=== PATIENT | male | born 1960 | race Two or more races ===

== ENCOUNTER 2018-01-15 11:15 | Inpatient (IN) | payer OTHER ==
[~2018-01-15] VITALS: Ht 185.4 cm; Wt 105.2 kg
[~2018-01-15 11:15] MED LIST: ceFAZolin sod 2 GM in D5W 110 ML IVPB ONE
[2018-03-12] VITALS (16 sets, daily range): BP systolic 116–136; BP diastolic 59–84
[2018-03-12] MEDS ORDERED: Zemuron 50mg/5ml Inj IV ONE (06:46)
[2018-03-12] MEDS ORDERED: MELOXICAM7.5 MG PO (06:52)
[2018-03-12] MEDS ORDERED: PROVENTIL HFA6.7 G1 IH (06:52)
[2018-03-12] MEDS ORDERED: METFORMIN HCL1000 M1 ORAL (06:52)
[2018-03-12] MEDS ORDERED: PRAVASTATIN SOD40 M1 ORAL (06:52)
[2018-03-12] MEDS ORDERED: ceFAZolin sod 2 GM in D5W 110 ML IVPB ONE (07:00)
[2018-03-12] MEDS ORDERED: LR 1000ml 1,000 ML IVLG SCH (07:04)
[2018-03-12] MEDS ORDERED: Sodium Chloride 10ml vial INJ ONE (07:06)
[2018-03-12] MEDS ORDERED: Lidocaine 1% Plain 30 ml INJ ONE ×2 (07:06→09:18)
[2018-03-12] MEDS ORDERED: Lidocaine 1% MPF 10mg/ml 5ml ONE (07:06)
--- NOTE | 2018-03-12 07:06 | Anethesia Preoperative Eval ---
Anesthesia Pre-op PMH/ROS General Date of Evaluation: Mar 12, 2018 Time of Evaluation: 07:31 Anesthesiologist: Jame ASA Score: ASA 3 Mallampati Score Class I : Soft palate, uvula, fauces, pillars visible Class II: Soft palate, uvula, fauces visible Class III: Soft palate, base of uvula visible Class IV: Only hard plate visible Mallampati Classification: Class II Surgeon: Hayden Diagnosis: Neck Pain Surgical Procedure: ACDF C5-6, C6-7 Anesthesia History: none Family History: no anesthesia problems Allergies: Coded Allergies: No Known Allergies (Unverified , 03/12/18) Medications: see eMAR Patient NPO?: Yes NPO Date: Mar 11, 2018 NPO Time: 1999 Past Medical History Cardiovascular: Reports: HTN, other - HL Endocrine: Reports: DM - FBS 137 Other: obesity - BMI 31 PSxH Narrative: R Wrist, Knee, Shoulder Sx, Sinus Sx Anesthesia Pre-op Phys. Exam Physician Exam Last Vital Signs Date Time Temp Pulse Resp B/P (MAP) Pulse Ox O2 Delivery O2 Flow Rate FiO2 03/12/18 06:32 Room Air 03/12/18 06:30 97.4 74 18 136/83 (100) 98 Constitutional: NAD Neurologic: CN 2-12 intact Cardiovascular: RRR Respiratory: CTA Gastrointestinal: S/NT/ND Airway Exam Mallampati Score: Class II MO: full ROM: limited Teeth: missing - Implants Anesthesia Pre-op A/P Risk Assessment & Plan Assessment: ASA 3 Plan: GA, SED, GlideScope Go Status Change Before Surgery: No Pre-Antibiotics Dru Grams Ancef IV Given Within 1 Hr of Incision: Yes Time Given: 07:46 Pablo Kilgore MD Mar 12, 2018 07:05
[2018-03-12] MEDS ORDERED: Bupivacaine w/Epi 0.5% 30ml Vial INJ ONE (07:12)
[2018-03-12] MEDS ORDERED: Vancomycin 1gm inj IVPB ONE (07:12)
[2018-03-12] MEDS ORDERED: Thrombin 5000 units TOPIC ONE ×2 (07:12→07:13)
[2018-03-12] MEDS ORDERED: Bacitracin 50000 Units Vial ONE (07:12)
[2018-03-12] MEDS ORDERED: oxyCODONE HCL/Acetaminophen 5/325mg ORAL PRN (07:15)
[2018-03-12] MEDS ORDERED: LORazepam Inj 2mg/ml 1ml IV PRN (07:15)
[2018-03-12] MEDS ORDERED: Acetaminophen (Non formulary) 100 ML IV ONE (07:15)
[2018-03-12] MEDS ORDERED: Meperidine 50mg/ml Inj(FOR RIGORS ONLY) IVP PRN (07:15)
[2018-03-12] MEDS ORDERED: Hydromorphone 0.5mg/0.5ml inj IVP PRN (07:15)
[2018-03-12] MEDS ORDERED: Norco 5mg/325mg tab ORAL PRN ×2 (07:15→08:00)
[2018-03-12] MEDS ORDERED: Ketorolac 30mg Inj IV PRN ×2 (07:15)
[2018-03-12] MEDS ORDERED: HYDROcodone/Acetamin 7.5/325 tab ORAL PRN ×2 (07:15→08:00)
[2018-03-12] MEDS ORDERED: Midazolam 2mg/2ml Inj IVP PRN (07:15)
[2018-03-12] MEDS ORDERED: Atropine Sulfate 0.4mg/ml inj IVP PRN (07:15)
[2018-03-12] MEDS ORDERED: DiphenhydrAMINE 50mg/ml Inj IVP PRN (07:15)
[2018-03-12] MEDS ORDERED: Metoclopramide 10mg/2ml Inj IVP PRN (07:15)
[2018-03-12] MEDS ORDERED: fentaNYL 100 mcg/2 mL IV PRN (07:15)
--- NOTE | 2018-03-12 07:26 | Pre-Procedure Note/Attestation ---
Pre-Procedure Note/Attestation Complete Prior to Procedure Procedure Narrative: ACDF C56 and C67 with iliac bone marrow aspiration Indications for Procedure Pre-Operative Diagnosis: cervical radiculopathy Attestation I attest that I discussed the nature of the procedure; its benefits; risks and complications; and alternatives (and the risks and benefits of such alternatives ), prior to the procedure, with the patient (or the patient's legal paper sales representative). I attest that, if there was a reasonable possibility of needing a blood transfusion, the patient (or the patient's legal paper sales representative) was given the [facility] standardized written summary, pursuant to the [place] Blood Safety Act ([place] Health and Safety Code # 1645, as amended). I attest that I re-evaluated the patient just prior to the surgery and that there has been no change in the patient's H&P, except as documented below: Tolu Blake MD Mar 12, 2018 07:26
[2018-03-12] MEDS ORDERED: NS Irrig 1000ml ONE (07:30)
[2018-03-12] MEDS ORDERED: Labetalol 5mg/ml 20ml vial IV ONE (07:30)
[2018-03-12] MEDS ORDERED: LR 1000ml ONE (07:30)
[2018-03-12] MEDS ORDERED: Sterile Water Irrig 1000ml IRRIG ONE (07:30)
[2018-03-12] MEDS ORDERED: Propofol 1,000mg/ 100ml btl IV ONE (07:30)
[2018-03-12] MEDS ORDERED: Heparin 1000 units/ml 1ml Vial ONE (07:56)
[2018-03-12] MEDS ORDERED: HYDROmorphone 1mg/ml Carpuject IVP PRN (08:00)
[2018-03-12] MEDS ORDERED: HYDROmorphone 1mg/ml Carpuject SUBQ PRN (08:00)
[2018-03-12] MEDS ORDERED: Naloxone 0.4mg/ml Inj IVP PRN (08:00)
[2018-03-12] MEDS ORDERED: fentaNYL 100 mcg/2 mL IV ONE ×2 (08:10→10:07)
--- NOTE | 2018-03-12 08:35 | Immediate Post-Op Evaluation ---
Immediate Post-Op Evalulation Immediate Post-Op Evalulation Procedure: ACDF C5-6, C6-7 Date of Evaluation: Mar 12, 2018 Time of Evaluation: 11:44 IV Fluids: 1000 LR Blood Products: 0 Estimated Blood Loss: 75 Urinary Output: 200 Blood Pressure Systolic: 135 Blood Pressure Diastolic: 83 Pulse Rate: 72 Respiratory Rate: 16 O2 Sat by Pulse Oximetry: 100 Temperature (Fahrenheit): 97.7 Pain Score (1-10): 2 Nausea: No Vomiting: No Complications 0 Patient Status: awake, reacts, patent, extubated, none Hydration Status: adequate Dru Grams Ancef IV Given Within 1 Hr of Incision: Yes Time Given: 07:46 Pablo Kilgore MD Mar 12, 2018 08:35
[2018-03-12] MEDS ORDERED: Docusate 100mg cap ORAL SCH (09:00)
--- NOTE | 2018-03-12 11:18 | Brief Operative Note ---
Immediate Post Operative Note Operative Note Pre-op Diagnosis: cervical radiculopathy Procedure: ACDF C56 AND C67 WITH ILIAC BMAC Post-op Diagnosis: same as pre-op Findings: consistent w/pre-op dx studies Surgeon: LILIYA Biostatistics Professor: RENETTA Anesthesiologist: HANNAH Anesthesia: general Specimen: yes Complications: none Condition: stable Fluids: 1L Estimated Blood Loss: minimal - 75CC Drains: none Implant(s) used?: Yes Tolu Blake MD Mar 12, 2018 11:18
--- NOTE | 2018-03-12 13:20 | NUR ---
NURSE NOTES: Patient arrived to unit at 1310 via bed accompanied by RN. Received report from Destiny RN. Belongings checked at bedside and verified, all belongings sent home with patient's friend. Patient is asleep but arousable to voice, no s/s acute distress noted. On 3L NC. IV patent and running KVO IVF. SCD's in place. VS assessed and stable, neuro check assessed intact. Dressing assessed c/d/i, ice pack in place. Patient reminded to not turn head from side to side, to remain in neutral position. Side rails upx2, bed low and locked, call light in reach. Will continue to monitor.
[2018-03-12] MEDS: D5 1/2NS 1,000 ML IV SCH ×2 (14:13→17:51)
--- NOTE | 2018-03-12 15:26 | Diagnostic Imaging Report ---
INDICATION: Pain left upper extremity greater than right upper extremity, intraoperative TECHNIQUE: Intraoperative imaging Fluoroscopy time: 21.1 seconds Total dose: 0.75362 mGym2 Total number of images: 5 COMPARISON: None FINDINGS: 6 intraoperative images demonstrate a surgical needle anterior to the C5 vertebral body, subsequent surgical tool at the anterior aspect of the C6-7 disc. Subsequent images document anterior fusion and placement of disc spacers at C5-6 and C6-7. IMPRESSION: Intraoperative imaging, as described
--- NOTE | 2018-03-12 16:07 | NUR ---
CASE MANAGEMENT:REVIEW 57 YR OLD MALE HERE FOR ELECTIVE SURGERY SI: CERVICAL RADICULOPATHY 97.4 74 18 136/83 98% ON RA IS: TO SURGERY FOR: ACDF C56 AND C67 W/ILIAC BMAC IV ANCEF Q8HR IVF@100/HR NORCO PO Q3HRS PRN IV DILAUDID Q2HRS PRN : TO MED/SURG 3 EAST POST OP Addendum: 03/12/18 at 1614 by SHARMAINE ANGLIN LVN LVN INTERQUAL CRITERIA MET
[2018-03-12] MEDS: ceFAZolin sod 1 GM in D5W 55 ML IV SCH (16:28)
[2018-03-12] MEDS: HYDROcodone/Acetamin 7.5/325 tab ORAL PRN ×2 (16:40→21:40)
--- NOTE | 2018-03-12 18:24 | NUR ---
NURSE NOTES: Giles catheter removed per order. Patient given urinal and instructed to inform RN when voided. Will continue to monitor.
[2018-03-12] MEDS: Docusate 100mg cap ORAL SCH (18:29)
--- NOTE | 2018-03-12 19:55 | NUR ---
NURSE NOTES: Endorsed to nightshift nurse that patient has not yet voided after tobin catheter removal.
--- NOTE | 2018-03-12 19:55 | NUR ---
HAND-OFF: Report given to Heidi HENLEY. Patient stable.
--- NOTE | 2018-03-12 19:55 | NUR ---
NURSE NOTES:Patient received from Yessica Cooney patient IN BED A/A/AOX4 .Patient Denies any pain at at this time . no sob/no n/v noted .patient right hand G#18 D51/2 NS @ 100 CC/HR infusing well . anterior neck and right hip dressing C/D/I . Patient instructed to uses IS at bed bedside . Patient tolerated well call light within reach . bed in low position at all times. will continue to monitor patient. Addendum: 03/13/18 at 0255 by GORDON ESCALONA LVN Patient on O2 2L via N/C ON AND SCDS Bilateral lower extremities in placed .
[2018-03-13] VITALS: BP 124/74
[2018-03-13] MEDS: D5 1/2NS 1,000 ML IV SCH ×2 (00:08→12:36)
[2018-03-13] MEDS: ceFAZolin sod 1 GM in D5W 55 ML IV SCH ×2 (00:17→09:31)
[2018-03-13] MEDS: HYDROcodone/Acetamin 7.5/325 tab ORAL PRN ×3 (03:55→17:29)
[2018-03-13 04:00] VITALS: BP 133/85
--- NOTE | 2018-03-13 07:45 | NUR ---
HAND-OFF: Report given to Meaghan Cooney Patient in stable condition.
[2018-03-13 08:00] VITALS: BP 124/75
--- NOTE | 2018-03-13 08:29 | NUR ---
Pt in bed a/o x 4 having breakfast in no acute distress running fluids as ordered. Dressing to anterior neck D/C/I. Pt left in bed in low position, call light within reach, skid socks on.
--- NOTE | 2018-03-13 09:22 | NUR ---
Rehab/P.T Note: P.T evaluation completed and treatment initiated spinal protocol. Please refer to P.T evaluation for current functional status. Skilled P.T service warranted to ensure safety and compliance with spinal precautions in performing ADL/functional activities. Thank you this referral.
[2018-03-13] MEDS: Docusate 100mg cap ORAL SCH ×2 (09:31→17:29)
[2018-03-13 12:47] VITALS: BP 126/82
--- NOTE | 2018-03-13 14:59 | NUR ---
CASE MANAGEMENT:REVIEW 03/13/18 SI: CERVICAL RADICULOPATHY. POD #1 98.6 76 20 126/82 99% ON RA IS: COLACE PO BID NORCO PO Q3HRS PRN : MED/SURG STATUS 3 EAST
--- NOTE | 2018-03-13 15:18 | 48 Hour Post Anesthesia Eval ---
Post Anesthesia Evaluation Procedure: ACDF C5-6, C6-7 Date of Evaluation: Mar 13, 2018 Time of Evaluation: 15:17 Blood Pressure Systolic: 124 0: 74 Pulse Rate: 68 Respiratory Rate: 22 Temperature (Fahrenheit): 97.6 O2 Sat by Pulse Oximetry: 98 Airway: patent Nausea: No Vomiting: No Pain Intensity: 2 Hydration Status: adequate Cardiopulmonary Status: stable Mental Status/LOC: patient returned to baseline Follow-up Care/Observations: n/a Post-Anesthesia Complications: none Follow-up care needed: N/A Aric Mullins MD Mar 13, 2018 15:18
[2018-03-13 16:00] VITALS: BP 121/68
--- NOTE | 2018-03-13 16:07 | Internal Med Progress Note ---
Subjective Physician Name ChrisPrince Attending Physician Tolu Blake MD Current Medications Medications (Trade) Dose Ordered Sig/Joshua Route PRN Reason Start Time Stop Time Status Last Admin Dose Admin Acetaminophen/ Hydrocodone Bitart ([place] 5/325) 1 tab Q3H PRN ORAL pain score 1-3 03/12/18 08:00 03/19/18 07:59 Acetaminophen/ Hydrocodone Bitart ([place] 7.5/325) 1 tab Q3H PRN ORAL pain score 4-6 03/12/18 08:00 03/19/18 07:59 Acetaminophen/ Hydrocodone Bitart ([place] 7.5/325) 2 tab Q3H PRN ORAL pain scale 7-10 03/12/18 08:00 03/19/18 07:59 03/13/18 09:31 Dextrose/Sodium Chloride 1,000 ml @ 100 mls/hr Q10H IV 03/12/18 07:51 04/11/18 07:50 03/13/18 12:36 Docusate Sodium (Colace) 100 mg TWICE A DAY ORAL 03/12/18 18:00 04/11/18 17:59 03/13/18 09:31 Hydromorphone HCl (Dilaudid) 1 mg Q2H PRN IVP Breakthrough Pain 03/12/18 08:00 03/19/18 07:59 Hydromorphone HCl (Dilaudid) 1 mg Q4H PRN SUBQ Mild Pain (Pain Scale 1-3) 03/12/18 08:00 03/19/18 07:59 Hydromorphone HCl (Dilaudid) 2 mg Q3H PRN SUBQ Severe Pain (Pain Scale 7-10) 03/12/18 08:00 03/19/18 07:59 03/13/18 14:59 Hydromorphone HCl (Dilaudid) 2 mg Q4H PRN SUBQ Moderate Pain (Pain Scale 4-6) 03/12/18 08:00 03/19/18 07:59 Naloxone HCl (Narcan) 0.1 mg PRN PRN IVP RR<12/min, pt unarousable 03/12/18 08:00 04/11/18 07:59 Ondansetron HCl (Zofran) 4 mg Q6H PRN IVP Nausea & Vomiting 03/12/18 08:00 04/11/18 07:59 Allergies: Coded Allergies: No Known Allergies (Unverified , 03/12/18) Subjective awake, alert, responsive Objective Last Vital Signs Date Time Temp Pulse Resp B/P (MAP) Pulse Ox O2 Delivery O2 Flow Rate FiO2 03/13/18 15:18 68 22 98 03/13/18 12:47 98.6 126/82 (97) 03/13/18 09:00 Room Air 03/12/18 13:30 2.0 Intake and Output 03/12/18 03/13/18 18:59 06:59 Intake Total 2110 ml 1775 ml Output Total 1125 ml 1500 ml Balance 985 ml 275 ml Intake Oral 700 ml 720 ml IV Total 1410 ml 1055 ml Output Urine Total 1050 ml 1500 ml Estimated Blood Loss 75 ml # Voids 3 Objective General: No acute distress, awake and alert HEENT: NCAT, sclera anicteric, PERRL, EOMI. Neck: Supple, no significant jugular venous distention, Surgical incision intact dressing. Lungs: Good inspiratory effort, clear to auscultation bilaterally, no Wheeze or Rales. Heart: Regular rate and rhythm, normal S1/S2, no murmurs Abdomen: soft, nontender, nondistended. Normoactive bowel sounds. / Rectal: Refused and deferred. Extremities: No Cyanosis , clubbing or edema. Neuro: A&O x 3, Able to move all extremities Skin: warm, no rashes or lesions Psych: Normal mood and affect Assessment/Plan Assessment/Plan cervical radiculopathy s/p ACDF C56 AND C67 WITH ILIAC BMAC DM 2 Asthma Plan: DC home today once okay by surgery Prince Perez MD Mar 13, 2018 16:07
[2018-03-13] MEDS ORDERED: PERCOCET 5-3251 EACH ORAL (16:56)
--- NOTE | 2018-03-13 19:05 | NUR ---
NURSE NOTES: Pt discharged in stable condition a/o x 4. Delivered packet to pt with discharge instructions. Percocet Rx hand delivered. Pt left with [place] collar on and all belongings. wheelchaired to car by Chun STEWART.
[2018-03-13] MEDS ORDERED: D5 1/2NS 1000ml IV ONE (19:29)
[2018-03-13] MEDS ORDERED: Tubing IV Secondary IV ONE (19:29)
--- NOTE | 2018-03-13 20:01 | Operative Note - Dictated ---
DATE OF OPERATION: 03/12/2018 PREOPERATIVE DIAGNOSES: C5-C6 and C6-C7 spondylosis, stenosis, disc protrusion, and upper extremity radiculopathy. POSTOPERATIVE DIAGNOSES: C5-C6 and C6-C7 spondylosis, stenosis, disc protrusion, and upper extremity radiculopathy. PROCEDURES: 1. Interbody arthrodesis with decompression at C5-C6 and C6-C7. 2. Anterior cervical instrumentation at C5 through C7. 3. Application of biomechanical device at C5-C6 and C6-C7 with local autograft, allograft, and bone marrow aspirate concentrate. 4. Aspiration of right iliac crest bone marrow. SURGEON: Tolu Blake M.D. HOME OFFICE CLAIMS EXAMINER: Douglas Correia M.D. ANESTHESIA: General endotracheal anesthesia. SPECIMEN: Disk at C5-C6 and C6-C7. ANESTHESIOLOGIST: Pablo Kilgore M.D. EBL: Less than 75 mL. IV ANTIBIOTICS: 2 g of Ancef. COMPLICATIONS: None. BACKGROUND AND INDICATIONS: This is a pleasant male, who failed nonoperative treatment and option for above treatment was given. Risks, alternatives, and benefits were discussed with the patient at length. Risks include, but are not limited to, anesthesia complications including , medical complications including liver, kidney, and cardiopulmonary deficits, bleeding, infection, dysphonia, dysphagia, hematoma of the neck, nerve root injury, paralysis, spinal cord injury, CSF leak, dural tear, fracture of the hardware, loosening of the hardware, need for revision, decompression and fusion, swallowing difficulties, esophageal injury, tracheal injury, recurrent laryngeal nerve injury as well as other complications including compartment syndrome. The patient understood and wished to proceed. All the patient's questions were answered. Written and verbal consent was given. No guarantees were given. OPERATIVE FINDINGS: Herniated nucleus pulposus at C5-C6 and C6-C7 with spinal cord compression, neural foraminal stenosis, exiting nerve root impingement at C5-C6 and C6-C7, and disc height collapse at C5-C6. DESCRIPTION OF OPERATION: The patient was brought into the operating room supine on a stretcher. Appropriate IV lines were placed by the anesthesiologist and 2 g of Ancef was administered. The patient was induced and intubated without complication. The patient was positioned onto the operating room table. The neck was placed in slight extension. The arms were tucked by the side. All bony prominences were well padded as well as lower extremities. SSEP neurophysiological leads were placed and EMG monitoring was done. Both remained stable throughout the case. Preoperative fluoroscopy revealed the planned incision to be over C5-C6 and C6-C7 interspaces. Fluoroscopy revealed the neck to be in adequate alignment. The neck was prepped and draped in the usual fashion. The right iliac crest was also prepped and draped in the usual sterile fashion. At this point, attention was first diverted to the right iliac crest. A Jamshidi needle was placed into the right iliac crest and 30 mL of bone marrow aspirate was aspirated in 3 different locations and passed off sterilely for concentration. At this point, attention was diverted to the neck. An incision was carried out with a scalpel on the anterior right side of the neck in the crease of the neck. Hemostasis was achieved with a bipolar cautery. The platysma was incised in line with the skin incision. Blunt dissection was carried out in the interval between the strap muscles and the sternocleidomastoid. Superficial cervical fascia was dissected caudally as well as cephalad. Carotid pulse was palpated and was found to be well lateral to the field of dissection. Deep cervical fascia was encountered. Once the deep cervical fascia was encountered, blunt dissection was carried out with Kitt[place] as well as the finger dissection to find the prevertebral space. The longus colli was found on both sides of the spine and was subperiosteally dissected. At this point, retractors were set into place and a spinal needle was placed at the disk level. Lateral fluoroscopy was taken and the C5-C6 and C6-C7 levels were positively identified. Data Entry Supervisor retractors were set into place and initial attention was diverted to the C5-C6 level. With the use of #1, #2, and #3 Kerrison punches, straight curved curette, as well as a high-speed high, a radical diskectomy was accomplished. An uncovertebrectomy was also done to the level of the posterior longitudinal ligament. There was extensive amount of disk material centrally in the lateral recess and intraforaminally, which was removed with #1 and #2 Kerrison punches. A #1 and #2 Microsect curettes were used to remove the PLL and expose the dura and give a complete decompression of the spinal cord, the lateral recess, and neural foramina. Attention was diverted to the neural foramina until a complete decompression of the exiting C6 nerves bilaterally was accomplished. At this point, Valsalva at 40 mmHg was done and there was no CSF leak and a complete decompression was achieved. Now, retractors were moved to the C6-C7 level and with the same instruments, a radical diskectomy and uncovertebrectomy was accomplished at C6-C7 to the level of the posterior longitudinal ligament. There was a disk herniation, which was abutting the spinal cord and compressing the spinal cord as well in the lateral recess and foraminal region. With #1 and #2 Kerrison punches, all disk material was removed as well as foraminal stenosis, which was removed until there was a complete decompression of the exiting C7 nerve and the neural foramina bilaterally were found to be patent. A #1 and #2 Microsect curettes were used to carefully peel the posterior longitudinal ligament off of the dura and a complete decompression of the spinal cord and exiting nerve root was accomplished. Valsalva at 40 mmHg was done and there was no CSF leak. At this point, the wound was copiously irrigated with triple antibiotic solution and attention was diverted to placing the trial for the biomechanical devices from the CoreLink 3D system. An 8 mm in height by 16.5 mm in width by 14 mm in depth with 7-degree lordosis CoreLink 3D titanium biomechanical device was chosen for the C6-C7 level was packed with local autograft, which was harvested from the vertebral bodies, Ilan allograft, and bone marrow aspirate concentrate and this biomechanical device was tamped into place at C6-C7 with excellent apposition against the endplate and excellent recreation of lordosis. A 7 mm in height CoreLink 3D titanium biomechanical device was chosen for the C5-C6 level was also packed with bone marrow aspirate concentrate, Ilan allograft, and local autograft and tamped into place at C5-C6 with excellent recreation of lordosis. A 32 mL [place] anterior cervical plate was chosen and was fixed to the anterior surface of the vertebral bodies with 16 mm variable self-drilling screws. Each screw had excellent purchase in the vertebral body and found below the locking mechanism of the [place] plate appropriately. There was excellent lordosis of the [place] plate and the plate sat snugly against the vertebral bodies. At this point, final AP and lateral fluoroscopy revealed all instrumentation to be in excellent position. Hemostasis was achieved with bipolar cautery, FloSeal, Gelfoam, and thrombin. The wound was copiously irrigated. There was no bleeding and therefore, a decision was made not to place a drain. The platysma was closed with 3-0 Vicryl suture. The subcuticular layer was closed with 3-0 Monocryl suture. The skin was closed with Dermabond. Sterile dressing tape was placed on the neck as well as the right hip. The patient was extubated. A C-collar was placed. He was taken to the recovery room in stable condition and was found to be neurovascularly intact. There were no complications during the case. Tolu Blake M.D. DR: KISHOR JOB#: [id number] CC:
--- NOTE | 2018-03-15 12:05 | Discharge Summary ---
Discharge Summary Hospital Course Date of Admission Mar 12, 2018 at 05:52 Date of Discharge Mar 13, 2018 at 19:30 Admitting Diagnosis cervical radiculopathy Reason for Hospitalization: elective surgery HPI Marco Antonio Manrique is a 57 year old male who was admitted on Mar 12, 2018 at 05: 52 for Cervical Radiculopathy Consultations dr Perez - IM Procedures s/p 03/12/[address] Blake 1. Interbody arthrodesis with decompression at C5-C6 and C6-C7. 2. Anterior cervical instrumentation at C5 through C7. 3. Application of biomechanical device at C5-C6 and C6-C7 with local autograft, allograft, and bone marrow aspirate concentrate. 4. Aspiration of right iliac crest bone marrow. Hospital Course status post surgery course of recovery uneventful initially IV fluids s/p perioperative antibiotics neurovascular status closely monitored, stable incision clean, dry ,and intact pain management addressed ; pain controlled hemodynamically stable ambulated with PT fall precautions maintained; safe for ambulation tolerated liquid diet , IV fluids discontinued throat lozenges as needed for comfort provided continue with soft diet for few days at home and advance to regular as tolerated GI prophylaxis provided antiemetics were on board as needed blood sugar was closely monitored , stable pulse oximetry stable on room air, no evidence of respiratory distress or asthma exacerbation voided freely bowel regimen instituted patient was stable for discharge discharge instructions provided [place] collar on, instructed on use and compliance follow up with surgeon as outpatient as advised by surgeon FINAL DIAGNOSES Cervical radiculopathy s/p ACDF C5-6 and C6-7 with iliac BMAC ( bone amrrow aspirtaion concentrate) Diabetes mellitus Asthma Discharge Medications Continued Medications: Albuterol Sulfate (Proventil Hfa) 6.7 Gm Hfa.aer.ad 6.7 GM IH NEEDED (This prescription has been renewed) Meloxicam* (Meloxicam*) 7.5 Mg Tablet 7.5 MG PO BID PRN for For Pain, TAB (This prescription has been renewed) Metformin Hcl* (Metformin Hcl*) 1,000 Mg Tablet 1000 MG ORAL BID, TAB (This prescription has been renewed) Oxycodone/Acetaminophen 5-325* (Percocet 5-325 Mg Tablet*) 1 Each Tablet 1 TAB ORAL Q4H PRN for For Pain, #40 TAB (This prescription has been renewed) Pravastatin Sod (Pravastatin Sod) 40 Mg Tablet 40 MG ORAL BEDTIME, TAB (This prescription has been renewed) Discharge Condition Upon Discharge: stable Discharge Disposition Patient was discharged to Home (01) Discharge Instructions Discharge Instructions Special Instructions I have been assigned to complete a D/C Summary on this account. I was not involved in the patient management I have been assigned to complete a D/C Summary on this account. I was not involved in the patient management Kami Mccormick NP Mar 15, 2018 12:05
== END 2018-03-13 19:30 | disposition home or self-care (01) | DRG 473 ==
LOC: SDSOVERFLO 03-12 05:52 → 3E 03-12 13:07
PROC: 07DR3ZZ Extraction of Iliac Bone Marrow, Percutaneous Approach (ICD-10-PCS; principal; 2018-03-12 07:30)
PROC: 0RG20A0 Fusion of 2 or more Cervical Vertebral Joints with Interbody Fusion Device, Anterior Approach, Anterior Column, Open Approach (ICD-10-PCS; principal; 2018-03-12 07:30)
PROC: 0RT30ZZ Resection of Cervical Vertebral Disc, Open Approach (ICD-10-PCS; principal; 2018-03-12 07:30)
PROC: 01N10ZZ Release Cervical Nerve, Open Approach (ICD-10-PCS; principal; 2018-03-12 07:30)
DX: M50.122 Cervical disc disorder at C5-C6 level with radiculopathy (principal); M48.02 Spinal stenosis, cervical region; M47.22 Other spondylosis with radiculopathy, cervical region; E11.9 Type 2 diabetes mellitus without complications; J45.909 Unspecified asthma, uncomplicated
CPT/HCPCS: 36415; 72040; 76001; 82962; 86850; 86900; 86901; 87081; 94003; 94150; J2405